=== PATIENT | male | born 1955 | race Caucasian/White ===

== ENCOUNTER 2017-10-11 07:54 | Outpatient (CLI) | payer BC ==
[~2017-10-11] VITALS: Ht 170.2 cm; Wt 95.5 kg
--- NOTE | ~2017-10-11 | OP ---
PATIENT NAME: GIACOMO PATIÑO MEDICAL RECORD: [id number] :55 LOCATION:[facility] ADMISSION DATE: SURGEON: TRI DIAS MD DATE OF OPERATION: 10/11/2017 PROCEDURES: 1. Aortofemoral runoff. 2. Abdominal aortography. INDICATION: Claudication and peripheral vascular disease. PROCEDURE IN DETAIL: After informed consent was obtained, after detailed explanation of risks, benefits as well as alternative therapies, the patient elected to proceed with angiogram. The left femoral area was prepped and draped in normal sterile fashion. Left femoral artery was cannulated via modified Seldinger technique with placement of 5-Mohawk sheath. All catheters exchanged through this sheath. FINDINGS: Abdominal aortography was performed. The catheter was pulled down for aortofemoral runoff. Abdominal aortography reveals no significant abdominal aortic disease, no renal artery stenosis. No dissection or aneurysm formation. RIGHT LEG: A. Iliacs: The common internal and external iliacs have mild irregularities, but no flow-limiting stenosis. B. Femoral system: The common superficial femoral arteries have mild irregularities, but no flow-limiting stenosis. C. Popliteal and infrapopliteal vessels are widely patent with good 3-vessel runoff to the foot. LEFT LEG: A. Iliacs: The common internal and external iliacs have mild irregularities, but no flow-limiting stenosis. B. Femoral system: The common superficial femoral arteries have mild irregularities, but no flow-limiting stenosis. C. Popliteal and infrapopliteal vessels are widely patent with good 3-vessel runoff to the foot. OVERALL IMPRESSION: No significant peripheral vascular disease is present. Leg pain is non-arterial vascular in etiology. TRANSINT:[id number] Voice Confirmation ID: [id number] DOCUMENT ID: [id number] TRI DIAS MD CC: [id number] DICTATION DATE: 10/11/17 0958 CONTINUOUS WASHER OPERATOR: 10/11/17 1311 DEP CLI 10/11/17 [facility] [address] [id number]
--- NOTE | ~2017-10-11 | HEMODYNAMI ---
PATIENT:GIACOMO PATIÑO MEDICAL RECORD: [id number] : 55 LOCATION:[facility] ADMISSION DATE: 10/11/17 Generatedon:10/11/20179:59 Patient name: GIACOMO PATIÑO Patient #: [id number] SSN: [id number] : 1955 Date of study: 10/11/2017 Page: Of Hemodynamic Procedure Report Patient Data Patient Demographics Procedure consent was obtained First Name: GIACOMO Gender: Male Last Name: HAROON : 1955 Middle Initial: ANJUM Age: 62 year(s) Patient #: [id number] Race: SSN: [id number] Additional ID: [id number] Contact details Address: [address] [place] [address] drive State: [place] City: [place] Zip code: [address] Past Medical History Allergies Allergen Reaction Date Comments Reported Other allergy 08/24/2015 Codeine, Hydrocodone Other allergy 10/11/2017 Codeine, Hydrocodone Admission Admission Data Admission Date: 10/11/2017 Admission Time: 7:54 Lab Results Lab Result Date: 10/11/2017 Lab Result Time: 0:00 Biochemistry Name Units Result Min Max BUN mg/dl 14 --(--*-)-- 7 18 Creatinine mg/dl 1.1 --(--*-)-- 0.6 1.3 CBC Name Units Result Min Max Hemoglobin g/dl 19.3 --(----)-* 13.5 17.5 Procedure Procedure Types Cath Procedure Miscellaneous Procedures Moderate Sedation up to 30 minutes Peripheral Cath Diagnostic Procedure Cath Peripheral Jocms-Tjjlpph-Etx-Off Procedure Description Procedure Date Procedure Date: 10/11/2017 Procedure Start Time: 9:45 Procedure End Time: 9:56 Procedure Staff Name Function Issac Jeffries MD Performing Physician Hilary Marrufo RN Nurse Daniela Dudley RT Scrub Dominique Trevino RT Monitor Procedure Data Cath Procedure Fluoroscopy Diagnostic fluoroscopy Total fluoroscopy Time: 0.5 time: 0.5 min min Diagnostic fluoroscopy Total fluoroscopy dose: 177 dose: 177 mGy mGy Contrast Material Contrast Material Type Amount (ml) Isovue 300 62 Entry Location Entry Primary Successful Side Size Upsize Upsize Entry Closure Succes sful Closure Location (Fr) 1 (Fr) 2 (Fr) Remarks Device Remarks Femoral Left 5 Fr Exoseal artery Estimated blood loss: 5 ml Diagnostic catheters Device Type Used For End Catheter Placement DIAGNOSTIC UF 5Fr Multi-vessel catheter ([id number]) Angiography Procedure Complications No complications Procedure Medications Medication Administration Route Dosage 0.9% NaCl I.V. 100 ml/hr Oxygen NC 2 l/min Lidocaine 2% added to field 20 Heparin Flush Bag added to field 2 bags (1000units/500ml NS) Zofran I.V. 4 mg Fentanyl I.V. 100 mcg Versed I.V. 2 mg Versed I.V. 1 mg Fentanyl I.V. 50 mcg Fentanyl I.V. 50 mcg Versed I.V. 1 mg Hemodynamics Rest HGB: 19.3 (g/dl) Heart Rate: 91 (bpm) Snapshots Pre Cath Intra NCS Post Cath Vital Signs Time Heart Resp SPO2 etCO2 NIBP (mmHg) Rhythm Pain Sedation Rate (ipm) (%) (mmHg) Status Level (bpm) 9:32:49 93 18 97 0 170/71(134) NSR 0 (11) 10(A) , No pain 9:38:09 88 16 96 31.4 145/84(118) NSR 0 (11) 10(A) , No pain 9:42:27 84 16 97 41.9 155/92(119) NSR 0 (11) 10(A) , No pain 9:46:51 86 16 97 38.1 144/105(143) NSR 0 (11) 9(A) , No pain 9:51:13 90 14 94 17.9 145/83(116) NSR 0 (11) 9(A) , No pain 9:55:31 87 16 97 35.9 154/98(129) NSR 0 (11) 10(A) , No pain Medications Time Medication Route Dose Verified Delivered Reason Notes Ef fectiveness by by 9:21:04 0.9% NaCl I.V. 100ml/hr Issac Richard used for Mervin Marrufo city recorder 9:21:18 Oxygen NC 2 l/min Issac Richard Per Mervin Marrufo RN physician 9:21:26 Lidocaine 2% added 20ml Issac Davenport for local to vial Mervin Jeffries MD anesthetic field 9:21:32 Heparin Flush added 2 bags Issac Davenport used for Bag to Mervin Jeffries MD procedure (1000units/500ml field NS) 9:31:11 Zofran I.V. 4 mg Issac Richard nausea Mervin Marrufo RN 9:44:07 Fentanyl I.V. 100 mcg Issac Richard for Mervin Marrufo RN sedation 9:44:16 Versed I.V. 2 mg Issac Richard for Mervin Marrufo RN sedation 9:47:29 Versed I.V. 1 mg Issac Richard for Mervin Marrufo RN sedation 9:47:35 Fentanyl I.V. 50 mcg Issac Richard for Mervin Marrufo RN sedation 9:52:12 Fentanyl I.V. 50 mcg Issac Richard for Mervin Marrufo RN sedation 9:52:18 Versed I.V. 1 mg Issac Richard for Mervin Marrufo RN sedation Procedure Log Time Note 9:18:54 Informed consent obtained and on chart 9:19:15 Diagnostic Cath Status : Elective 9:19:50 Hilary Marrufo RN sent for patient. Start room use. 9:19:51 Time tracking: Regular hours 9:19:55 Plan of Care:Hemodynamics will remain stable., Cardiac rhythm will remain stable., Comfort level will be maintained., Respiratory function will remain adequate., Patient/ family verbilizes understanding of procedure., Procedure tolerated without complication., Recovers from procedure without complications.. 9:21:04 0.9% NaCl 100ml/hr I.V. was administered by Hilary Marrufo RN; used for procedure; 9:21:18 Oxygen 2 l/min NC was administered by Hilary Marrufo RN; Per physician; 9::26 Lidocaine 2% 20ml vial added to field was administered by Issac Jeffries MD; for local anesthetic; 9:21:32 Heparin Flush Bag (1000units/500ml NS) 2 bags added to field was administered by Issac Jeffries MD; used for procedure; 9:31:11 Zofran 4 mg I.V. was administered by Hilary Marrufo RN; nausea; 9:31:22 Vital chart was started 9:39:58 Patient received from Pre/Post Procedure Room to CCL 2 Alert and oriented. Tansferred to table in Supine position. 9:39:59 Warm blankets applied, and rick hugger turned on for patient comfort. 9:39:59 Correct patient and procedure confirmed by team. 9:40:00 Baseline sample Acquired. 9:40:00 ECG and BP/O2 sat monitors applied to patient. 9:40:07 Rhythm: sinus tachycardia 9:40:08 Full Disclosure recording started 9:40:20 H&P Date Dictated: 10/09/2017 Within 30 days and on chart., H&P Addendum completed by physician on day of procedure. (MUST COMPLETE FOR ALL OUTPATIENTS). 9:40:21 Pre-procedure instructions explained to patient. 9:40:22 Pre-op teaching completed and patient verbalized understanding. 9:40:31 Family in patients room. 9:40:32 Patient NPO since Midnight. 9:40:52 Patient allergic to Other allergyCodeine, Hydrocodone 9:40:54 Is the patient allergic to Iodine/contrast media? No. 9:40:55 Was the patient premedicated? No 9:41:14 Is patient on blood thinner?Yes 9:41:20 ACC The patient was administered the following blood thiners within the last 24 hours: ACCPlavix 9:41:22 Patient diabetic? Yes. 9:41:23 If diabetic: On Metformin? No 9:41:26 Previous problem with sedation/anesthesia? No ? 9:41:28 Snore? Yes 9:41:29 Sleep apnea? No 9:41:30 Deviated septum? No 9:41:31 Opens mouth fully? Yes 9:41:31 Sticks out tongue? Yes 9:41:33 Airway obstruction? No ? 9:41:35 Dentures? No ? 9:41:43 Pre procedure: right dorsailis pedis pulse 1+ Palpable, but thready & weak; easily obliterated 9:41:46 Pre procedure: left dorsailis pedis pulse 1+ Palpable, but thready & weak; easily obliterated 9:41:48 Patient pain scale 0/10 ?. 9:41:53 IV patent on arrival in left forearm with 0.9% NaCl at O. 9:43: Lab Result : BUN 14 mg/dl :: Lab Result : Hemoglobin 19.3 g/dl :: Lab Result : Creatinine 1.1 mg/dl :43: Lab results completed and on chart. 9:43:33 Bilateral groins area was prepped with chlora-prep and draped in sterile fashion 9:43:34 Alarms reviewed by R. N. 9:43:34 Sharps counted by scrub and verified by R.N. 9:43:36 Physician arrived 9:43:36 --------ALL STOP TIME OUT------ 9:43:37 Final Timeout: patient, procedure, and site verified with staff and physician. All members of the team are in agreement. 9:43:39 Bilateral groins site verified by team. 9:43:42 Physical assessment completed. ASA score P 2 - A patient with mild systemic disease as per Issac Jeffries MD. 9:43:46 Sedation plan: IV Moderate Sedation Medication:Versed, Fentanyl 9:43:54 Use device set Femoral Dx 9:43:56 ACIST Syringe (62301) opened to sterile field. 9:43:57 Bag Decanter (2002S) opened to sterile field. 9:43:59 Medline Cath Pack ([id number]) opened to sterile field. 9:44:00 SHEATH 5FR [place] ([id number]) opened to sterile field. 9:44:01 DIAGNOSTIC WIRE .035 260cm J wire (532387) opened to sterile field. 9:44:03 ACIST Hand Control (08112) opened to sterile field. 9:44:04 ACIST Manifold (72210) opened to sterile field. 9:44:06 Tegaderm 4 x 4 (1626W) opened to sterile field. 9:44:07 Fentanyl 100 mcg I.V. was administered by Hilary Marrufo RN; for sedation; 9:44:16 Versed 2 mg I.V. was administered by Hilary Marrufo RN; for sedation; 9:45:35 Zero performed for pressure channel P1 9:45:41 Zero performed for pressure channel P1 9:45:50 Procedure started. 9:45:57 Local anesthetic to left femerol artery with Lidocaine 2% by Issac Jeffries MD.INITIAL ACCESS ONLY 9:46:13 A 5 Fr sheath was inserted into the Left Femoral artery 9:47:29 Versed 1 mg I.V. was administered by Hilary Marrufo RN; for sedation; 9:47:35 Fentanyl 50 mcg I.V. was administered by Hilary Marrufo RN; for sedation; 9:52:12 Fentanyl 50 mcg I.V. was administered by Hilary Marrufo RN; for sedation; 9:52:18 Versed 1 mg I.V. was administered by Hilary Marrufo RN; for sedation; 9:53:51 A DIAGNOSTIC UF 5Fr catheter ([id number]) was advanced over the wire and used for Multi-vessel Angiography. 9:53:54 Abdominal angiogram w/ runoff was performed. 9:54:22 Injector settings: Ml/sec: 5, Volume: 10, 9:54:37 Catheter removed. 9:54:44 EXOSEAL 5Fr (EX500) opened to sterile field. 9:54:53 Sheath removed intact; hemostasis achieved with Exoseal to the Left Femoral artery. 9:54:54 Procedure ended.(Physican Out) 9:55:28 Fluoroscopy time 00.50 minutes. 9:55:36 Fluoroscopy dose: 177 mGy 9:55:36 Flurop Dose total: 177 9:55:40 Contrast amount:Isovue 300 62ml. 9:55:41 Sharps counted by scrub and verified by R.N. 9:56:08 Insertion/operative site no bleeding no hematoma. 9:56:12 Post-op/insertion site Left Femoral artery dressed using a 4 x 4 and Tegaderm. 9:56:15 Post left femerol artery:stable 9:56:17 Post Procedure Pulses reassessed and unchanged 9:56:19 Post procedure rhythm: unchanged. 9:56:32 Estimated blood loss: 5 ml 9:56:34 Post procedure instruction explained to patient.Patient verbalizes understanding. 9:56:34 Patient needs reinforcement of post procedure teaching. 9:56:44 Procedure type changed to Cath procedure, Miscellaneous Procedures, Moderate Sedation up to 30 minutes, Peripheral Cath Diagnostic Procedure, Cath Peripheral, Egxmg-Afmfiml-Rox-Off 9:56:44 Procedure and supply charges have been captured, reviewed, submitted and are correct. 9:56:48 Procedure Complication : No complications 9:56:50 Vital chart was stopped 9:56:51 See physician's report for complete and final results. 9:56:53 Report given to Pre/Post Procedure Room. 9:56:56 Patient transfered to Pre/Post Procedure Room with Stretcher. 9:56:57 Procedure ended. 9:56:57 Full Disclosure recording stopped 9:57:02 End room use (Document Last) Device Usage Item Name Manufacture Quantity Catalog Hospital Part Current Minimal L ot# / Number Charge Number Stock Stock Serial# Code ACIST Acist 1 27956 [id number] 051352 050889 20 Syringe Medical (44365) Systems Inc Bag Microtek 1 2001S 299048 00429 705935 5 Decanter Medical Inc. (2001S) Medline Cardinal 1 [id number] 865033 53334 583736 5 Cath Pack Health ([id number]) SHEATH 5FR Terumo 1 HLQ165 592426 018096 062060 40 [place] (BOE648) DIAGNOSTIC [facility] [place] 1 717101 578656 924195 830726 30 WIRE .035 260cm J wire (552221) ACIST Hand Acist 1 08671 598876 527807 118620 5 Control Medical (98436) Systems Inc ACIST Acist 1 35776 926264 437785 037549 5 Manifold Medical (94358) Systems Inc Tegaderm 4 3M 1 1626W 743006 108733 641863 5 x 4 (1626W) DIAGNOSTIC Cardinal 1 [id number] 467495 462488 579772 10 UF 5Fr Health catheter ([id number]) EXOSEAL 5Fr Cardinal 1 EX500 968646 571013 729224 10 (EX500) Health Signature Audit [place] Stage Time Signature Unsigned Intra-Procedure 10/11/2017 Dominique Trevino 9:59:30 AM RT(R) Signatures Monitor : Dominique Trevino RT Signature : Date : Time : [id number] [place] [address]
[~2017-10-11 07:54] MED LIST: ASPIRIN81 MG PO; COREG6.25 MG PO; LANTUS INSULIN10 ML SC; NOVOLOG100 U/M1 SC; PLAVIX75 MG PO; ZESTORETIC 10/11 TAB PO
[2017-10-11] MEDS ORDERED: TOUJEO SOL300 UNIT/1 SC ×2 (08:30→08:38)
[2017-10-11 09:06] VITALS: BP 146/89; Ht 170.2 cm; Wt 95.5 kg
[2017-10-11 09:09] LABS: BASOPHILS 0.3 % (0-2); EOSINOPHILS 4.3 % (0-7); HEMATOCRIT 54.3 % (42.0-54.0); HEMOGLOBIN 19.3 g/dL (13.5-17.5); IMMATURE GRANULOCYTES 0.6 % (0-5); LYMPHOCYTES 19.6 % (15-50); MCH 33.6 pg (26.0-34.0); MCHC 35.5 g/dL (31.0-37.0); MCV 94.6 fL (80.0-100.0); MEAN PLATELET VOLUME 10.8 fL (7.4-10.4); MONOCYTES 5.7 % (2-11); NEUTROPHILS 69.5 % (40-80); PLATELET COUNT 260 10x3/uL (130-400); RBC 5.74 10x6/uL (4.20-6.10); RDW 13.4 % (11.5-14.5); WBC 12.4 10x3/uL (4.8-10.8)
[2017-10-11 09:16] LABS: ANION GAP 14.9 mmol/L (8-16); CARBON DIOXIDE 26.2 mmol/L (21.0-32.0); CREATININE - SERUM 1.1 mg/dL (0.6-1.3); POTASSIUM - SERUM 4.1 mmol/L (3.5-5.1)
== END 2017-10-11 12:05 | disposition home or self-care (01) ==
LOC: D.CATH 07:54
PROVIDERS: Internal Medicine Interventional Cardiology
DX: M79.605 Pain in left leg (principal); M79.604 Pain in right leg; Z01.812 Encounter for preprocedural laboratory examination

== ENCOUNTER 2019-04-18 06:30 | Outpatient (CLI) | payer BC ==
[~2019-04-18] VITALS: Ht 170.2 cm; Wt 297.7 kg
[~2019-04-18 06:30] MED LIST changes: +TOUJEO SOL300 UNIT/1 SC
[2019-04-18 06:53] LABS: BASOPHILS 0.3 % (0-2); EOSINOPHILS 2.6 % (0-7); HEMATOCRIT 43.9 % (42.0-54.0); HEMOGLOBIN 15.3 g/dL (13.5-17.5); IMMATURE GRANULOCYTES 0.2 % (0-5); LYMPHOCYTES 14.9 % (15-50); MCH 30.5 pg (26.0-34.0); MCHC 34.9 g/dL (31.0-37.0); MCV 87.6 fL (80.0-100.0); MEAN PLATELET VOLUME 10.7 fL (7.4-10.4); MONOCYTES 4.1 % (2-11); NEUTROPHILS 77.9 % (40-80); PLATELET COUNT 245 10x3/uL (130-400); RBC 5.01 10x6/uL (4.20-6.10); RDW 13.7 % (11.5-14.5); WBC 12.9 10x3/uL (4.8-10.8)
[2019-04-18 07:19] LABS: APTT 38.4 SECONDS (22.8-39.4); INR 1.04 (0.85-1.17); PROTIME 13.1 SECONDS (11.6-15.0)
[2019-04-18] MEDS ORDERED: GLUCOPHAGE1000 MG PO (07:28)
[2019-04-18 07:30] VITALS: Ht 170.2 cm; Wt 297.7 kg
[2019-04-18 07:35] LABS: CALC OSMOLALITY 281 mosm/kg (275-300); CALCIUM 9.2 mg/dL (8.5-10.1); CARBON DIOXIDE 27.7 mmol/L (21.0-32.0); CHLORIDE - SERUM 103 mmol/L (98-107); CREATININE - SERUM 0.8 mg/dL (0.6-1.3); POTASSIUM - SERUM 4.3 mmol/L (3.5-5.1); SODIUM 139 mmol/L (136-145); UREA NITROGEN 18 mg/dL (7-18); eGFR NON AFRICAN AMERICAN > 90 mL/min (90-120)
[2019-04-18 07:36] LABS: GLUCOSE 129 mg/dL (74-106)
--- NOTE | 2019-04-18 10:55 | NUR ---
1034 PT RETURNED TO ROOM 2515 FROM RADIOLOGY. PT DID NOT GET SEDATION.
--- NOTE | 2019-04-18 10:57 | NUR ---
1044 IV DC'D. CATHETER TIP INTACT. PRESSURE HELD UNTIL BLEEDING STOPPED. BANDAID APPLIED.
== END 2019-04-18 10:52 | disposition home or self-care (01) ==
LOC: D.SP 06:30 → D.RAD 09:00 → D.CT 09:00 → D.SP 10:52
PROVIDERS: General Practice; ATTEND Radiology Vascular & Interventional Radiology
DX: C61 Malignant neoplasm of prostate (principal); R59.0 Localized enlarged lymph nodes; Z01.812 Encounter for preprocedural laboratory examination